=== PATIENT | male | born 1970 | race African-American/Black ===

== ENCOUNTER → 2016-12-27 | Outpatient (CLI) | payer OTHER ==
[~2016-12-27] MED LIST: ISOVUE-370 76% 100ML VIAL (Q9967) As Ordered ONE
== END ==
LOC: M RAD 14:59
PROVIDERS: ATTEND General Practice
DX: I71.4 Abdominal aortic aneurysm, without rupture (principal)

== ENCOUNTER → 2017-01-17 | Outpatient (REF) | payer OTHER | LOC: M SMT 16:49 | PROVIDERS: ATTEND Nurse Practitioner Family | DX: N39.9 Disorder of urinary system, unspecified (principal) | CPT/HCPCS: 51798; 81001; 87086; G0463 ==

== ENCOUNTER 2017-08-21 14:42 | Emergency (ER) | payer OTHER ==
[2017-08-21] MEDS: cefTRIAXone SOD 250 MG VIAL (J0696) IM (17:00)
[2017-08-21] MEDS: AZITHROMYCIN 250 MG TAB PO (17:00)
[2017-08-21 18:15] LABS: CHLAMYDIA DNA AMPLIFICATION NEGATIVE (NEGATIVE); GC DNA AMPLIFICATION NEGATIVE (NEGATIVE)
== END 2017-08-21 17:28 | disposition home or self-care (01) ==
LOC: M ED 14:42
DX: Z20.2 Contact with and (suspected) exposure to infections with a predominantly sexual mode of transmission (principal)
CPT/HCPCS: J0696

== ENCOUNTER 2017-09-19 18:25 | Emergency (ER) | payer OTHER ==
[2017-09-19 21:28] LABS: CHLAMYDIA DNA AMPLIFICATION NEGATIVE (NEGATIVE); GC DNA AMPLIFICATION NEGATIVE (NEGATIVE)
== END 2017-09-19 19:14 | disposition home or self-care (01) ==
LOC: M ED 18:25
DX: Z20.2 Contact with and (suspected) exposure to infections with a predominantly sexual mode of transmission (principal); I10 Essential (primary) hypertension
CPT/HCPCS: 87591

== ENCOUNTER 2017-12-09 13:34 | Emergency (ER) | payer OTHER ==
[2017-12-09 15:01] LABS: KETONE, URINE AUTO RFX NEGATIVE (NEGATIVE); LEUKOCYTE ESTERASE UR AUTO RFX NEGATIVE (NEGATIVE); MUCUS, URINE RFX SMALL (NEGATIVE); NITRITE, URINE AUTO RFX NEGATIVE (NEGATIVE); RBC, URINE AUTO RFX 0 /HPF (0-3); SPECIFIC GRAVITY UR AUTO RFX 1.021 (1.002-1.035); SQUAM EPITHELIAL CELL UR AURFX 0 /HPF (0-6); WBC, URINE AUTO RFX 0 /HPF (0-3)
[2017-12-09 18:26] LABS: CHLAMYDIA DNA AMPLIFICATION NEGATIVE (NEGATIVE); GC DNA AMPLIFICATION NEGATIVE (NEGATIVE)
== END 2017-12-09 15:40 | disposition home or self-care (01) ==
LOC: M ED 13:34
DX: Z20.2 Contact with and (suspected) exposure to infections with a predominantly sexual mode of transmission (principal); F41.9 Anxiety disorder, unspecified; F32.9 Major depressive disorder, single episode, unspecified; Z79.899 Other long term (current) drug therapy
CPT/HCPCS: 81001

== ENCOUNTER 2018-01-05 13:28 | Emergency (ER) | payer OTHER ==
[2018-01-05 15:59] LABS: CHLAMYDIA DNA AMPLIFICATION NEGATIVE (NEGATIVE); GC DNA AMPLIFICATION NEGATIVE (NEGATIVE)
[2018-01-07 09:33] LABS: HIV 1&2 SCREEN CENTAUR NEGATIVE (NEGATIVE)
== END 2018-01-05 13:46 | disposition home or self-care (01) ==
LOC: M ED 13:28
DX: Z11.3 Encounter for screening for infections with a predominantly sexual mode of transmission (principal); I10 Essential (primary) hypertension; R51 Headache; F41.9 Anxiety disorder, unspecified; Z79.899 Other long term (current) drug therapy
CPT/HCPCS: 86780